=== PATIENT | male | born 1980 | race Hispanic/Latino ===

== ENCOUNTER 2019-01-25 19:00 | Emergency (ER) | payer BC ==
[~2019-01-25] VITALS: Ht 177.8 cm; Wt 102.5 kg
--- OUTSIDE RECORDS SUMMARY | 2019-01-25 19:04 | XMS REPORT | Clinical Summary ---
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 01/28/2018 HYDROcodone-acetaminophen Take 1 tablet 30 tablet 0 (NORCO) 7.5-325 mg per by mouth 8 tablet every 6 (six) hours as needed for severe pain for up to 20 days. Max Daily Amount: 4 tablets 02/07/2018 insulin NPH (HumuLIN-N) Inject 20 10 mL 12 100 unit/mL injection Units under 8 the skin 2 (two) times a day before meals for 30 days. Active Problems Problem Noted Date Sepsis 01/07/2018 Perianal abscess 01/06/2018 Diabetes mellitus Social History Date Tobacco Use Types Packs/Day Years Used Current Every Day Smoker Smokeless Tobacco: Never Used Comments: social Alcohol Use Drinks/Week oz/Week Comments No Sex Assigned at Date Recorded Not on file Industry Job Start Date Occupation Not on file Not on file Not on file Travel End Travel History Travel Start No recent travel history available. Last Filed Vital Signs Not on file Plan of Treatment Health Maintenance Due Date Last Done Comments DIABETIC RETINAL EYE EXAM 1978 DIABETIC FOOT EXAM 1988 URINE MICROALBUMIN 1988 INFLUENZA VACCINE 06/17/2018 Results Not on fileafter 01/24/2018 Advance Directives Patient has advance care planning documents, and code status on file. For more i nformation, please contact: Santy Marr [address] [place] [address] Date Inactivated Comments Code Status Date Activated 01/08/2018 5:20 PM Full Code 01/06/2018 3:20 PM Code Status decision reached by: Patient Code Status decision reached by: Patient
[2019-01-26] MEDS ORDERED: PANTOPRAZOLE 40 MG 10ML VIAL IV STA
[2019-01-26 01:53] LABS: BASOPHILS % 0.5 % (0.0-1.0); EOSINOPHILS # (AUTO) 0.1 (0.0-0.4); EOSINOPHILS % 1.4 % (0.0-6.0); HEMATOCRIT 42.9 % (38.2-49.6); HEMOGLOBIN 15.2 g/dL (14.0-18.0); LYMPHOCYTES # (AUTO) 2.7 (1.0-3.2); LYMPHOCYTES % 35.9 % (18.0-39.1); MEAN CORPUSCULAR HEMOGLOBIN 32.7 pg (28-32); MEAN CORPUSCULAR HGB CONC 35.4 g/dL (31-35); MEAN CORPUSCULAR VOLUME 92.3 fL (81-99); MONOCYTES # (AUTO) 0.6 (0.2-0.8); MONOCYTES % 7.3 % (4.4-11.3); NEUTROPHILS # (AUTO) 4.2 (2.1-6.9); NEUTROPHILS % 54.5 % (38.7-80.0); PLATELET COUNT 250 x10e3/uL (140-360); RED BLOOD COUNT 4.65 x10e6/uL (4.3-5.7); RED CELL DISTRIBUTION WIDTH 11.6 % (11.7-14.4)
[2019-01-26 01:59] LABS: INR 0.88; PARTIAL THROMBOPLASTIN TIME 23.3 seconds (23.8-35.5); PROTHROMBIN TIME 12.4 seconds (11.9-14.5)
[2019-01-26 02:08] LABS: CREATINE KINASE 166 IU/L (30-200)
[2019-01-26 02:11] LABS: ALANINE AMINOTRANSFERASE 22 IU/L (0-55); ALBUMIN 3.9 g/dL (3.5-5.0); ALBUMIN/GLOBULIN RATIO 1.4 (0.8-2.0); ALKALINE PHOSPHATASE 99 IU/L (40-150); AMYLASE 48 U/L (25-125); ANION GAP 13.3 mmol/L (8-16); BLOOD UREA NITROGEN 18 mg/dL (7-26); BUN/CREATININE RATIO 20 (6-25); CALCIUM 9.5 mg/dL (8.4-10.2); CARBON DIOXIDE 25 mmol/L (22-29); CHLORIDE 98 mmol/L (98-107); CREATININE, SERUM 0.89 mg/dL (0.72-1.25); EST GLOMERULAR FILTRATION RATE > 60 ML/MIN (60-); LIPASE 25 U/L (8-78); POTASSIUM 4.3 mmol/L (3.5-5.1); SODIUM 132 mmol/L (136-145)
[2019-01-26 02:20] LABS: GLUCOSE 443 mg/dL (74-118)
[2019-01-26] MEDS ORDERED: INSULIN REGULAR, HUMAN 100 UNIT/1 ML 3ML VIAL SQ ONE (02:30)
[2019-01-26] MEDS ORDERED: SODIUM CHLORIDE 0.9% 1000ML 1,000 ML IV ONE (02:30)
[2019-01-26 04:02] VITALS: BP 125/77
== END 2019-01-26 04:11 | disposition home or self-care (01) ==
LOC: ER 19:00
DX: R10.13 Epigastric pain (principal); K29.00 Acute gastritis without bleeding; E11.9 Type 2 diabetes mellitus without complications
CPT/HCPCS: 36415; 80053; 82150; 82550; 82553; 82948; 83690; 84484; 85025; 85610; 85730; 93005; 99284; C9113; J7030

== ENCOUNTER 2019-07-09 09:33 | Observation (INO) | payer BC ==
[~2019-07-09] VITALS: Ht 177.8 cm; Wt 105.7 kg
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
[2019-07-09] MEDS ORDERED: AUGMENTIN 500-1 EACH PO (10:21)
[2019-07-09] MEDS ORDERED: METFORMIN HCL500 MG PO (10:21)
[2019-07-09] MEDS ORDERED: CIPRO500 MG PO (10:22)
[2019-07-09] MEDS ORDERED: SULFAMETHOXAZO1 EAC1 (10:22)
[2019-07-09 10:48] LABS: BASOPHILS # (AUTO) 0.1 (0.0-0.1); EOSINOPHILS # (AUTO) 0.2 (0.0-0.4); EOSINOPHILS % 2.4 % (0.0-6.0); HEMATOCRIT 43.5 % (38.2-49.6); LYMPHOCYTES # (AUTO) 1.9 (1.0-3.2); LYMPHOCYTES % 26.9 % (18.0-39.1); MEAN CORPUSCULAR HEMOGLOBIN 32.8 pg (28-32); MEAN CORPUSCULAR HGB CONC 34.5 g/dL (31-35); MONOCYTES # (AUTO) 0.8 (0.2-0.8); MONOCYTES % 11.8 % (4.4-11.3); NEUTROPHILS # (AUTO) 3.8 (2.1-6.9); NEUTROPHILS % 55.2 % (38.7-80.0); PLATELET COUNT 301 x10e3/uL (140-360); RED BLOOD COUNT 4.58 x10e6/uL (4.3-5.7); RED CELL DISTRIBUTION WIDTH 11.7 % (11.7-14.4)
[2019-07-09] MEDS ORDERED: INSULIN REGULAR, HUMAN 100 UNIT/1 ML 3ML VIAL ONE (10:51)
[2019-07-09 10:56] LABS: ANION GAP 15.9 mmol/L (8-16); BLOOD UREA NITROGEN 19 mg/dL (7-26); BUN/CREATININE RATIO 23 (6-25); CARBON DIOXIDE 25 mmol/L (22-29); CHLORIDE 100 mmol/L (98-107); CREATININE, SERUM 0.81 mg/dL (0.72-1.25); EST GLOMERULAR FILTRATION RATE > 60 ML/MIN (60-); GLUCOSE 301 mg/dL (74-118); POTASSIUM 4.9 mmol/L (3.5-5.1); SODIUM 136 mmol/L (136-145)
[2019-07-09] MEDS ORDERED: LIDOCAINE HCL 2% 30 ML TUBE ONE (12:23)
[2019-07-09] MEDS ORDERED: BUPIVACAINE 0.25%/EPI 30ML SDV INJ ONE (12:23)
[2019-07-09] MEDS ORDERED: LIDOCAINE HCL 1% LOCAL INJ 20 ML VIAL ONE (12:23)
[2019-07-09 12:31] LABS: EOSINOPHILS % (MANUAL) 2 % (0-7); LYMPHOCYTES % (MANUAL) 27 % (19-48); MONOCYTES % (MANUAL) 12 % (3.4-9.0); NEUTROPHILS % (MANUAL) 59 % (40-74); PLATELET ESTIMATE ADEQUATE; RBC MORPHOLOGY COMMENT NORMAL
[2019-07-09] MEDS ORDERED: ONDANSETRON HCL INJ 2MG/ML 2ML 2 MG/ML VIAL ONE (12:53)
[2019-07-09] MEDS ORDERED: PROPOFOL IV EMULSION 10 MG/ML 20 ML VIAL ONE (12:53)
[2019-07-09] MEDS ORDERED: SEVOFLURANE INHAL SOLN 250 ML PEN BTL ONE (12:53)
[2019-07-09] MEDS ORDERED: ACETAMINOPHEN 1000 MG/100 ML IV ONE (12:53)
[2019-07-09] MEDS ORDERED: LIDOCAINE HCL 2% LOCAL INJ 5 ML SDV VIAL INJ ONE (12:53)
[2019-07-09] MEDS ORDERED: MIDAZOLAM HCL 2 MG/2 ML VIAL ONE (12:58)
[2019-07-09] MEDS ORDERED: FENTANYL CITRATE/PF 100MCG/2 ML INJ ONE ×3 (12:58→14:52)
[2019-07-09] MEDS ORDERED: ONDANSETRON HCL INJ 2MG/ML 2ML 2 MG/ML VIAL IV PRN (13:15)
[2019-07-09] MEDS ORDERED: HYDROCODONE/APAP 7.5MG-325MG 1 EA TAB PO PRN (13:15)
[2019-07-09] MEDS ORDERED: KETOROLAC TROMETHAMINE 30 MG/ML VIAL IV PRN (13:15)
[2019-07-09] MEDS ORDERED: ACETAMINOPHEN 1000 MG/100 ML IV PRN (13:15)
[2019-07-09] MEDS ORDERED: HYDROMORPHONE 1MG/1ML INJ IV PRN (13:15)
--- NOTE | 2019-07-09 13:36 | Operative Report ---
DATE OF PROCEDURE: 07/09/2019 SURGEON: Edilson Logan MD PREOPERATIVE DIAGNOSIS: Perineal abscess with subcutaneous necrotizing infection. POSTOPERATIVE DIAGNOSIS: Perineal abscess with subcutaneous necrotizing infection. OPERATION PERFORMED: Debridement of necrotizing subcutaneous perineal infection and drainage of abscess. ANESTHESIA: General. COMPLICATIONS: None. ESTIMATED BLOOD LOSS: 50 mL. DESCRIPTION OF PROCEDURE: With the patient lying in bed in the lithotomy position under good general anesthesia, the perineum was prepped with Betadine solution and draped in the usual manner. There was a draining opening to an abscess on the right side of the perianal area. The necrotic skin overlying the area was then resected and a large abscess was entered. Cultures were taken. 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 All of the necrotic skin was then removed. All of the subcutaneous tissue was then debrided and all the necrotic subcutaneous pockets were broken down and resected once we were back to more normal appearing tissue. The whole wound was then copiously irrigated with dilute Betadine solution. Hemostasis was ascertained. The wound was then packed with half-inch iodoform gauze. A dressing was applied. The sponge, lap, and needle counts were correct. The patient tolerated the procedure well and returned to the recovery room in stable condition. Edilson Logan MD JLR/MODL /[id number]
--- NOTE | 2019-07-09 15:10 | NUR ---
Received patient from PACU. Alert, oriented. Respiration even and unlabored without SOB. Patient denies pain at this time. Call light within reach.
[2019-07-09 15:26] VITALS: BP 114/69
[2019-07-09] MEDS: CEFTRIAXONE SOD 1 GM/NS 50 ML 50 ML IV SCH (15:33)
[2019-07-09] MEDS: SODIUM CHLORIDE 0.9% 1000ML 1,000 ML IV SCH (15:33)
[2019-07-09] MEDS: PANTOPRAZOLE 40 MG 10ML VIAL IV SCH (15:37)
[2019-07-09 15:42] VITALS: BP 114/69
[2019-07-09] MEDS: CLINDAMYCIN PHOS 900MG/ 50ML 50 ML IV SCH ×2 (16:00→22:32)
[2019-07-09 16:04] VITALS: BP 114/69
--- NOTE | 2019-07-09 16:44 | NUR ---
unable to visualize perirectal incision due to dressing. no bleeding noted.
[2019-07-09] MEDS: INSULIN REGULAR, HUMAN 100 UNIT/1 ML 3ML VIAL SQ SCH (17:23)
[2019-07-09] MEDS ORDERED: ACETAMINOPHEN 325 MG TAB PO PRN (18:00)
--- NOTE | 2019-07-09 19:49 | NUR ---
NO RESPIRATORY DISTRESS OBSERVED, PATIENT DENIES PAIN. DRESSING DRY AND INTACT TO THE BUTTOCK, IV FLUID INFUSING ORDERED. PATIENT UP TO THE RESTROOM TO VOID AT THIS TIME, HE'S INSTRUCTED TO CALL FOR ASSISTANCE NEEDED.
[2019-07-09 20:00] VITALS: BP 115/65
[2019-07-09 20:11] VITALS: BP 115/65
--- NOTE | 2019-07-09 21:57 | NUR ---
PATIENT C/O PAIN TO THE RECTAL, MEDICATED WITH NORCO 1TAB ORDERED. CALL LIGHT WITHIN EASY REACH, FAMILY MEMBERS WITH THE PATIENT.
[2019-07-09 23:59] VITALS: BP 108/63
--- NOTE | 2019-07-10 00:34 | NUR ---
WALKING ROUNDS MADE, PATIENT OBSERVED SOUNDLY ASLEEP WITHOUT RESPIRATORY DISTRESS. URINAL AND CALL LIGHT WITHIN EASY REACH.
[2019-07-10] MEDS: INSULIN REGULAR, HUMAN 100 UNIT/1 ML 3ML VIAL SQ SCH ×4 (01:14→16:06)
[2019-07-10] MEDS: SODIUM CHLORIDE 0.9% 1000ML 1,000 ML IV SCH (03:16)
--- NOTE | 2019-07-10 04:32 | NUR ---
ABD DRESSING REMAINS DRY AND INTACT TO THE RECTAL, PATIENT DENIES PAIN AT THIS TIME. CALL LIGHT WITHIN EASY REACH, PATIENT INSTRUCTED TO CALL FOR ASSISTANCE NEEDED.
[2019-07-10 04:43] VITALS: BP 110/64
[2019-07-10 05:49] LABS: BASOPHILS # (AUTO) 0.1 (0.0-0.1); BASOPHILS % 0.7 % (0.0-1.0); EOSINOPHILS # (AUTO) 0.2 (0.0-0.4); EOSINOPHILS % 3.3 % (0.0-6.0); HEMATOCRIT 37.1 % (38.2-49.6); HEMOGLOBIN 12.8 g/dL (14.0-18.0); LYMPHOCYTES # (AUTO) 1.9 (1.0-3.2); LYMPHOCYTES % 26.9 % (18.0-39.1); MEAN CORPUSCULAR HEMOGLOBIN 32.8 pg (28-32); MEAN CORPUSCULAR HGB CONC 34.5 g/dL (31-35); MEAN CORPUSCULAR VOLUME 95.1 fL (81-99); MONOCYTES # (AUTO) 0.9 (0.2-0.8); MONOCYTES % 12.7 % (4.4-11.3); NEUTROPHILS # (AUTO) 3.8 (2.1-6.9); NEUTROPHILS % 54.7 % (38.7-80.0); PLATELET COUNT 276 x10e3/uL (140-360); RED CELL DISTRIBUTION WIDTH 11.7 % (11.7-14.4)
[2019-07-10 05:55] LABS: BLOOD UREA NITROGEN 17 mg/dL (7-26); BUN/CREATININE RATIO 20 (6-25); CALCIUM 8.6 mg/dL (8.4-10.2); CARBON DIOXIDE 26 mmol/L (22-29); CHLORIDE 100 mmol/L (98-107); CREATININE, SERUM 0.83 mg/dL (0.72-1.25); EST GLOMERULAR FILTRATION RATE > 60 ML/MIN (60-); GLUCOSE 282 mg/dL (74-118); SODIUM 134 mmol/L (136-145)
[2019-07-10] MEDS: CLINDAMYCIN PHOS 900MG/ 50ML 50 ML IV SCH ×2 (06:20→14:42)
[2019-07-10 07:58] VITALS: BP 118/70
[2019-07-10 08:04] VITALS: BP 118/70
[2019-07-10 11:57] VITALS: BP 112/68
[2019-07-10] MEDS: CEFTRIAXONE SOD 1 GM/NS 50 ML 50 ML IV SCH (13:06)
[2019-07-10] MEDS: PANTOPRAZOLE 40 MG 10ML VIAL IV SCH (14:42)
[2019-07-10 15:32] VITALS: BP 121/72
== END 2019-07-10 18:10 | disposition home or self-care (01) ==
LOC: OR 09:33 → PACU V 13:10 → MED/SURG 15:12
PROVIDERS: ADMIT Surgery; ATTEND Surgery
DX: K61.1 Rectal abscess (principal); Z01.812 Encounter for preprocedural laboratory examination; E11.9 Type 2 diabetes mellitus without complications; F41.9 Anxiety disorder, unspecified; G47.33 Obstructive sleep apnea (adult) (pediatric); N49.3 Fournier gangrene; Z79.84 Long term (current) use of oral hypoglycemic drugs
CPT/HCPCS: 11004; 36415 ×2; 80048 ×2; 82948 ×2; 85025 ×2; 87071; 87075; 87205; 93005; 96365; 96367; 96372; C9113 ×2; G0378 ×2; J0131; J0696 ×2; J2001; J2250; J2405; J2704; J3010; J7030 ×2; J1817

== ENCOUNTER → 2019-10-29 | Day surgery (SDC) | payer BC ==
[~2019-10-29] MED LIST: AUGMENTIN 500-1 EACH PO; BUPIVACAINE 0.25%/EPI 30ML SDV INJ ONE; CEFAZOLIN SOD 1 GM VIAL IV ONE; CIPRO500 MG PO; IBUPROFEN200 MG PO; INSULIN REGULAR, HUMAN 100 UNIT/1 ML 3ML VIAL ONE; LIDOCAINE HCL 1% LOCAL INJ 20 ML VIAL ONE; LIDOCAINE HCL 2% 30 ML TUBE ONE; LIDOCAINE HCL 2% LOCAL INJ 5 ML SDV VIAL INJ ONE; LIDOCAINE JELLY 2% 10ML URO-JET ONE; METFORMIN HCL500 MG PO; OINTMENT TOP; ONDANSETRON HCL INJ 2MG/ML 2ML 2 MG/ML VIAL IV ONE; PROPOFOL IV EMULSION 10 MG/ML 20 ML VIAL IV ONE; SEVOFLURANE INHAL SOLN 250 ML PEN BTL INH ONE; SULFAMETHOXAZO1 EAC1; TYLENOL PO
[2019-10-29 10:25] LABS: BASOPHILS % 0.2 % (0.0-1.0); EOSINOPHILS % 0.2 % (0.0-6.0); HEMATOCRIT 43.6 % (38.2-49.6); HEMOGLOBIN 15.4 g/dL (14.0-18.0); LYMPHOCYTES # (AUTO) 1.9 (1.0-3.2); LYMPHOCYTES % 13.3 % (18.0-39.1); MEAN CORPUSCULAR HEMOGLOBIN 32.5 pg (28-32); MEAN CORPUSCULAR HGB CONC 35.3 g/dL (31-35); MONOCYTES # (AUTO) 1.4 (0.2-0.8); MONOCYTES % 9.5 % (4.4-11.3); NEUTROPHILS # (AUTO) 11.1 (2.1-6.9); NEUTROPHILS % 76.4 % (38.7-80.0); PLATELET COUNT 249 x10e3/uL (140-360); RED BLOOD COUNT 4.74 x10e6/uL (4.3-5.7); RED CELL DISTRIBUTION WIDTH 11.4 % (11.7-14.4)
[2019-10-29 10:43] LABS: ALANINE AMINOTRANSFERASE 15 IU/L (0-55); ALBUMIN 3.5 g/dL (3.5-5.0); ALBUMIN/GLOBULIN RATIO 1.1 (0.8-2.0); ALKALINE PHOSPHATASE 79 IU/L (40-150); ANION GAP 14.2 mmol/L (8-16); BLOOD UREA NITROGEN 17 mg/dL (7-26); BUN/CREATININE RATIO 22 (6-25); CALCIUM 9.2 mg/dL (8.4-10.2); CARBON DIOXIDE 25 mmol/L (22-29); CHLORIDE 102 mmol/L (98-107); CREATININE, SERUM 0.78 mg/dL (0.72-1.25); EST GLOMERULAR FILTRATION RATE > 60 ML/MIN (60-); GLUCOSE 264 mg/dL (74-118); POTASSIUM 4.2 mmol/L (3.5-5.1); SODIUM 137 mmol/L (136-145)
[2019-10-29 12:30] VITALS: BP 123/64
--- NOTE | 2019-10-29 18:03 | Operative Report ---
DATE OF PROCEDURE: 10/29/2019 SURGEON: Edilson Logan MD PREOPERATIVE DIAGNOSIS: Abscess of the right buttock. POSTOPERATIVE DIAGNOSIS: Abscess of the right buttock. OPERATION PERFORMED: Drainage of abscess of the right buttock. ANESTHESIA: General. COMPLICATIONS: None. ESTIMATED BLOOD LOSS: Minimal. DESCRIPTION OF PROCEDURE: With the patient lying in bed in the lithotomy position under good general anesthesia, perineum was prepped with Betadine solution and draped in the usual manner. There was a bulging abscess at the tip of the right buttock. The abscess cavity was then opened and a plug of skin was removed, immediately some purulent material and necrotic material was encountered, and all of this was aspirated and removed. The abscess cavity was then probed. There was no sign of any fistulous communication to the rectum. Once all of the loculations were broken, the cavity was then copiously irrigated with dilute Betadine solution and packed with half-inch iodoform gauze. A dressing was applied. The sponge, lap, and needle count was correct. The patient tolerated the procedure well and returned to the recovery room in stable condition. MD FAITH De Leon/MODL /[id number]
== END | disposition home or self-care (01) ==
LOC: OR 09:28
PROVIDERS: ATTEND Surgery
DX: L02.31 Cutaneous abscess of buttock (principal); E11.9 Type 2 diabetes mellitus without complications; Z79.84 Long term (current) use of oral hypoglycemic drugs
CPT/HCPCS: 10060; 36415; 80053; 82948; 85025; 93005; J0690; J2001; J2405; J2704; J1817